=== PATIENT | female | born 1975 ===

== ENCOUNTER 2024-12-03 12:30 | Inpatient (IN) | payer OTHER ==
[~2024-12-03] VITALS: Ht 33 cm; Wt 72.6 kg
[2024-12-03] MEDS ORDERED: LEVOTHYROXINE25 MCG PO (14:30)
[2024-12-03 14:31] VITALS: BP 112/73
[2024-12-03 14:44] LABS: COVID-19 AG NEGATIVE (NEGATIVE)
[2024-12-03 15:20] LABS: RH POSITIVE
[2024-12-06] MEDS ORDERED: THROMBIN,HU/FIBRINOGEN/CALCIUM 4 ML SYRINGE TOP ONE (21:19)
[2024-12-06] MEDS ORDERED: POVIDONE-IODINE 118 ML BOTT TOP ONE (21:53)
[2024-12-06] MEDS ORDERED: MORPHINE SULFATE 4 MG/ML CARTRIDGE IV PRN (22:00)
[2024-12-06] MEDS ORDERED: KETOROLAC TROMETHAMINE 30 MG VIAL IV ONE (22:00)
[2024-12-06] MEDS ORDERED: RINGERS SOLUTION,LACTATED 1,000 ML IV SCH (22:00)
[2024-12-06] MEDS ORDERED: SUGAMMADEX SODIUM 200 MG/2 ML VIAL IV ONE (22:50)
[2024-12-06] MEDS ORDERED: CEFAZOLIN SODIUM 1,000 MG VIAL IV ONE (23:00)
[2024-12-06] MEDS ORDERED: METRONIDAZOLE/SODIUM CHLORIDE 500 MG/100 ML PIGGYBACK IV ONE (23:00)
[2024-12-06] MEDS ORDERED: MORPHINE SULFATE 4 MG/ML VIAL IV ONE (23:35)
[2024-12-07] MEDS ORDERED: ACETAMINOPHEN 500 MG GEL..CAP PO SCH
[2024-12-07] MEDS ORDERED: KETOROLAC TROMETHAMINE 30 MG VIAL IM SCH
[2024-12-07] MEDS ORDERED: CEFAZOLIN SODIUM 1,000 MG VIAL ONE (00:01)
[2024-12-07] MEDS ORDERED: KETOROLAC TROMETHAMINE 30 MG VIAL ONE ×2 (00:01→04:56)
[2024-12-07] MEDS ORDERED: MORPHINE SULFATE 4 MG/ML VIAL IV ONE (00:05)
[2024-12-07] MEDS ORDERED: ACETAMINOPHEN 500 MG GEL..CAP PO ONE (00:07)
[2024-12-07] MEDS ORDERED: CEFAZOLIN SODIUM 1,000 MG VIAL IV SCH (01:00)
[2024-12-07] MEDS ORDERED: METOCLOPRAMIDE HCL 5 MG/ML VIAL IV SCH (01:00)
[2024-12-07 03:57] VITALS: BP 97/61
[2024-12-07 04:39] LABS: BASO % 0.2 % (0.1-1.2); EOS # 0.01 (0.04-0.54); EOS % 0.1 % (0.7-7.0); LYMPH # 1.31 (1.18-3.74); LYMPH % 7.9 % (19.3-53.1); MEAN PLATELET VOLUME 9.50 fl (9.4-12.4); MONO # 0.54 (0.24-0.82); MONO % 3.3 % (4.7-12.5); NEUT # 14.59 (1.56-6.13); NEUT % 88.1 % (34.0-71.1); RED CELL DISTRIBUTION WIDTH 11.7 % (11.6-14.4)
[2024-12-07 04:58] LABS: BUN CREA RATIO 11.0 (7.0-25.0); CREATININE SERUM 0.82 mg/dL (0.55-1.02); GFR 74.09; GLUCOSE FASTING 174.0 mg/dL (65-100); OSMOLALITY SERUM 279.0 MOSM/KG (275-295)
[2024-12-07] MEDS ORDERED: LEVOTHYROXINE SODIUM 25 MCG TABLET PO SCH (06:00)
[2024-12-07 06:27] VITALS: BP 109/66
[2024-12-07 08:51] VITALS: BP 98/60; O2SAT 98
[2024-12-07] MEDS ORDERED: SIMETHICONE 125 MG CAPSULE PO SCH (09:00)
[2024-12-07] MEDS ORDERED: DOCUSATE SODIUM 100MG CAP PO SCH (09:00)
[2024-12-07] MEDS ORDERED: ENOXAPARIN SODIUM 40 MG/0.4 ML SYRINGE SUBCUTANEO SCH (09:00)
[2024-12-07] MEDS ORDERED: FAMOTIDINE/PF 20 MG/2 ML VIAL IV PUSH SCH (09:00)
== END 2024-12-07 11:51 | disposition home or self-care (01) | DRG 743 ==
LOC: SURH 12-06 07:00 → O/R 12-06 13:47 → OB/GYN 12-06 23:43
PROVIDERS: Obstetrics & Gynecology; ADMIT Obstetrics & Gynecology Gynecologic Oncology; ATTEND Obstetrics & Gynecology Gynecologic Oncology
PROC: 0UT74ZZ Resection of Bilateral Fallopian Tubes, Percutaneous Endoscopic Approach (ICD-10-PCS; 2024-12-06)
PROC: 07BC4ZZ Excision of Pelvis Lymphatic, Percutaneous Endoscopic Approach (ICD-10-PCS; 2024-12-06)
PROC: 0UT94ZZ Resection of Uterus, Percutaneous Endoscopic Approach (ICD-10-PCS; principal; 2024-12-06 07:00)
DX: N80.03 Adenomyosis of the uterus (principal); N72 Inflammatory disease of cervix uteri